=== PATIENT | male | born 1980 | race Caucasian/White ===

== ENCOUNTER 2022-04-04 09:19 | Outpatient (REF) | payer OTHER, BC, SELFPAY ==
[2022-04-04 11:11] LABS: MANUAL DIFF FLAG NO
[2022-04-04 11:32] LABS: Basophils Percent Auto 0.3 % (0-2); Eosinophils Absolute Auto 0.1 X10*3/uL (0.0-0.4); Hematocrit 47.2 % (42.0-52.0); Hemoglobin 15.7 g/dl (14.0-18.0); Imm Gran Abs Auto 0.01 X10*3/uL (0.00-0.03); Imm Gran Pct Auto 0.2 % (0.0-0.4); Lymphocytes Absolute Auto 1.3 X10*3/uL (1.2-4.9); Lymphocytes Percent Auto 19.5 % (20-40); Mean Corpuscular HGB Conc 33.3 g/dl (31.0-36.0); Mean Corpuscular Hemoglobin 28.2 pg (27.0-33.0); Mean Corpuscular Volume 84.9 fL (80.0-98.0); Monocytes Absolute Auto 0.7 X10*3/uL (0.1-1.2); Monocytes Percent Auto 10.4 % (2-11); Neutrophils Absolute Auto 4.5 x10*3/uL (2.0-8.3); Neutrophils Percent Auto 67.6 % (45-73); Platelet Count 237 X10*3/uL (160-400); Red Blood Count 5.56 X10*6/uL (4.60-5.80); Red Cell Distribution Width 11.9 % (11.0-16.0); White Blood Count 6.6 X10*3/uL (4.8-10.8)
[2022-04-04 12:04] LABS: Alanine Aminotransferase 40 U/L (0-40); Albumin Level 4.6 g/dL (3.5-5.0); Alkaline Phosphatase 74 U/L (39-117); Anion Gap 16 (12-20); Aspartate Amino Transferase 23 U/L (5-37); Bilirubin Total 0.5 mg/dL (0.0-1.0); Blood Urea Nitrogen 18 mg/dL (9-16); Calcium 9.5 mg/dL (8.4-10.2); Carbon Dioxide 24 mmol/L (22-29); Chloride 105 mmol/L (96-108); Cholesterol 173 mg/dL; Estimated Glomerular Filt Rate > 60; Glucose Random 101 mg/dL (60-115); HDL Cholesterol 33 mg/dL; LDL Cholesterol Calculated 118 mg/dl; Potassium 4.6 mmol/L (3.3-5.1); Sodium 140 mmol/L (135-145); Total Protein 7.4 g/dL (6.5-8.0); Triglycerides 111 mg/dL
== END 2022-04-04 09:20 | disposition home or self-care (01) ==
LOC: HO.MANLDS 09:19
PROVIDERS: Visit Provider Physician Assistant
DX: I10 Essential (primary) hypertension (principal)
CPT/HCPCS: 36415; 80053; 80061; 85025

== ENCOUNTER 2023-10-13 09:59 | Outpatient (REF) | payer BC, SELFPAY ==
[2023-10-13 13:30] LABS: MANUAL DIFF FLAG NO
[2023-10-13 13:59] LABS: Basophils Percent Auto 0.5 % (0-2); Eosinophils Absolute Auto 0.1 X10*3/uL (0.0-0.4); Eosinophils Percent Auto 2.4 % (0-4); Hematocrit 46.6 % (42.0-52.0); Hemoglobin 15.1 g/dl (14.0-18.0); Imm Gran Abs Auto 0.03 X10*3/uL (0.00-0.03); Imm Gran Pct Auto 0.5 % (0.0-0.4); Lymphocytes Absolute Auto 1.4 X10*3/uL (1.2-4.9); Lymphocytes Percent Auto 24.3 % (20-40); Mean Corpuscular HGB Conc 32.4 g/dl (31.0-36.0); Mean Corpuscular Hemoglobin 28.3 pg (27.0-33.0); Mean Corpuscular Volume 87.4 fL (80.0-98.0); Mean Platelet Volume 12.4 fL (9.4-12.4); Monocytes Absolute Auto 0.6 X10*3/uL (0.1-1.2); Monocytes Percent Auto 9.7 % (2-11); Neutrophils Absolute Auto 3.6 x10*3/uL (2.0-8.3); Neutrophils Percent Auto 62.6 % (45-73); Platelet Count 217 X10*3/uL (160-400); Red Blood Count 5.33 X10*6/uL (4.60-5.80); Red Cell Distribution Width 12.6 % (11.0-16.0); White Blood Count 5.8 X10*3/uL (4.8-10.8)
[2023-10-13 14:26] LABS: Estimated Average Glucose 111 mg/dL; Hemoglobin A1c % 5.5 % (<6.0)
[2023-10-13 14:33] LABS: Prostate Specific Antigen 0.72 ng/mL (<0.05-4.0)
[2023-10-13 17:20] LABS: Alanine Aminotransferase 33 U/L (0-40); Albumin Level 4.4 g/dL (3.5-5.0); Alkaline Phosphatase 58 U/L (39-117); Anion Gap 12 (12-20); Aspartate Amino Transferase 24 U/L (5-37); Bilirubin Total 0.7 mg/dL (0.0-1.0); Blood Urea Nitrogen 16 mg/dL (9-16); Calcium 9.7 mg/dL (8.4-10.2); Carbon Dioxide 27 mmol/L (22-29); Chloride 108 mmol/L (96-108); Cholesterol 215 mg/dL (<200); Estimated Glomerular Filt Rate > 60; Glucose Random 91 mg/dL (60-115); HDL Cholesterol 49 mg/dL (>40); LDL Cholesterol Calculated 147 mg/dL (<100); Potassium 4.5 mmol/L (3.3-5.1); Sodium 142 mmol/L (135-145); Total Protein 7.4 g/dL (6.5-8.0); Triglycerides 95 mg/dL (<150)
[2023-10-13 17:43] LABS: Thyroid Stimulating Hormone 1.06 uIU/mL (0.32-4.0)
== END 2023-10-13 10:00 | disposition home or self-care (01) ==
LOC: HO.MANLDS 09:59
PROVIDERS: Visit Provider Physician Assistant
DX: Z00.00 Encounter for general adult medical examination without abnormal findings (principal); Z12.5 Encounter for screening for malignant neoplasm of prostate; E66.01 Morbid (severe) obesity due to excess calories
CPT/HCPCS: 36415; 80053; 80061; 83036; 84153; 84439; 84443; 85025

== ENCOUNTER 2024-10-03 11:42 | Outpatient (REF) | payer BC, SELFPAY ==
[2024-10-03 13:09] LABS: MANUAL DIFF FLAG NO
[2024-10-03 13:17] LABS: Basophils Percent Auto 0.5 % (0-2); Eosinophils Absolute Auto 0.2 X10*3/uL (0.0-0.4); Eosinophils Percent Auto 2.7 % (0-4); Hematocrit 44.1 % (42.0-52.0); Hemoglobin 14.1 g/dl (14.0-18.0); Imm Gran Abs Auto 0.02 X10*3/uL (0.00-0.03); Imm Gran Pct Auto 0.3 % (0.0-0.4); Lymphocytes Absolute Auto 1.3 X10*3/uL (1.2-4.9); Lymphocytes Percent Auto 22.1 % (20-40); Mean Corpuscular Hemoglobin 28.2 pg (27.0-33.0); Mean Corpuscular Volume 88.2 fL (80.0-98.0); Mean Platelet Volume 12.2 fL (9.4-12.4); Monocytes Absolute Auto 0.7 X10*3/uL (0.1-1.2); Monocytes Percent Auto 11.1 % (2-11); Neutrophils Absolute Auto 3.8 x10*3/uL (2.0-8.3); Neutrophils Percent Auto 63.3 % (45-73); Platelet Count 226 X10*3/uL (160-400); Red Cell Distribution Width 12.5 % (11.0-16.0)
--- OUTSIDE RECORDS SUMMARY | 2024-10-03 14:12 | XMS_ITS | Continuity of Care Document ---
Author Organization [facility] Address [address] [place] [address] [place] [address] Assessment No assessment recorded. Plan of Treatment Reminders Order Date Submit Date Provider Last Modified By Organization Details Last Modified Time Details Appointments SDV 2024 11:00A JAIDEN BROWN Not available Not available Not available ANNUAL EXAM 2025 09:00A JAIDEN BROWN Not available Not available Not available Lab lyme igg + igm Ab, western blot, serum 2024 025 [facility], [address] [place] [address], [id number], 10/03/2024 11:32:30 anaplasma phagocyto philum (hga/hge) igg+igm Ab, serum 2024 025 [facility], [address] [place] [address], [id number], 10/03/2024 11:32:30 ehrlichia chaffeens is, igg+igm Ab, serum 2024 025 [facility], [address] [place] [address], [id number], 10/03/2024 11:32:30 rickettsi al antibody panel, serum 2024 025 [facility], [address] [place] [address], [id number], 10/03/2024 11:34:17 CBC w/ auto diff 2024 025 [facility], [address] [place] [address], [id number], 10/03/2024 11:37:42 renin activity + aldostero ne, plasma 2024 025 [facility], [address] [place] [address], [id number], 10/03/2024 11:32:30 CMP, serum or plasma 2024 025 [facility], [address] [place] [address], [id number], 10/03/2024 11:32:30 Referral None recorded. Procedures None recorded. Surgeries None recorded. Imaging XR, knee, 3 view 2024 025 [facility], [address] [place] [address], [id number], 10/03/2024 13:34:33 XR, knee, 3 view 2024 025 [facility], [address] [place] [address], [id number], 10/03/2024 13:34:33 Medication Orders None recorded. Patient TargetsNo targets recorded. Patient InstructionsNo instructions recorded. Reason for Referral None Reported. Problems Name Problem SNOMED Code Status Onset Date Resolution Date Notes Provider Name and Address Organization Details Recorded Time Morbid obesity 055652832 Active 2019 Not Available [facility] 1 05:59:11 Sleep apnea 59327017 Active 2021 JAIDEN WISDOM [address] [place], [address], [facility] 2 15:49:49 Acute sinusitis 13488272 Active 2022 JAIDEN WISDOM [address] [place], [address], [facility] 3 15:07:19 Resistant hypertens jose agnel disorder 774487768823 109 Active 2024 JAIDEN WISDOM [address] [place], [address], [facility] 5 09:45:24 Hyperaldo steronism 64985847 Active 2024 JAIDEN WISDOM [address] [place], [address], [facility] 5 09:46:43 Malignant hypertens ion 89610142 Active 2024 JAIDEN WISDOM [address] [place], [address], [facility] 5 12:56:40 Lyme disease 74784099 Active 2024 JAIDEN WISDOM [address] [place], [address], [facility] 5 11:29:41 Pain of left knee joint 227538664614 107 Active 2024 JAIDEN WISDOM [address] [place], [address], [facility] 5 11:32:17 Pain of right knee joint 953501282580 100 Active 2024 JAIDEN WISDOM [address] [place], [address], [facility] 5 11:32:25 Essential hypertens ion 85622748 Active 2017 Not Available [facility] 1 05:59:11 Problem Notes None recorded. Medical Equipment None Reported. Allergies Allergen ID Allergen Name Allergen Category Reaction Reaction Severity Criticality Documentation Date Start Date Code Code System Note Provider Name and Address Organization Details Recorded Time 1768 lisinopri l medicatio n cough Not available Not available 01/01/2018 96306 [facility] 8 15:35:32 1789 doxycycli ne Not available hives Not available Not available 01/04/2018 3640 RxNorm Cheyanne pedraza [place] - [facility] 8 16:18:05 Medications Name Sig Start Date Stop Date Status Note LastModified by Organization Details LastModified Time losartan 50 mg tablet TAKE 2 TABLETS BY MOUTH EVERY DAY active Not Available Not Available No t Available cyclobenza jose luis 10 mg tablet 08/25 completed Not Available Not Available Not Available amoxicilli n 500 mg capsule TAKE 1 TABLET BY MOUTH 3 TIMES A DAY X11 DAYS 05/18 completed 2 - did not start Not Available Not Available Not Available labetalol 200 mg tablet TAKE 1 TABLET BY MOUTH TWICE A DAY 04/02 completed Not Available Not Available Not Available azithromyc in 250 mg tablet TAKE 2 TABLETS BY MOUTH TODAY, THEN TAKE 1 TABLET DAILY FOR 4 DAYS 05/18 completed Not Available Not Available Not Available prednisone 20 mg tablet 01/04 completed Not Available Not Available Not Available atenolol 25 mg tablet TAKE 1 TABLET BY MOUTH EVERY DAY 05/28 completed Not Available Not Available Not Available amlodipine 5 mg tablet TAKE 1 TABLET BY MOUTH EVERY DAY active Not Available Not Available No t Available triamcinol one acetonide 0.1 % topical cream APPLY A THIN LAYER TO THE AFFECTED AREA(S) BY TOPICAL ROUTE 2 TIMES PER DAY 10/15 completed Not Available Not Available Not Available spironolac tone 25 mg tablet TAKE 1 TABLET BY MOUTH EVERY DAY 05/28 completed Not Available Not Available Not Available amoxicilli n 500 mg tablet Take 1 tablet every 8 hours by oral route for 10 days. 07/05 completed Not Available Not Available Not Available losartan 100 mg-hydroch lorothiazi de 25 mg tablet TAKE 1 TABLET BY MOUTH ONCE A DAY active Not Available Not Available No t Available amoxicilli n 875 mg tablet TAKE 1 TABLET BY MOUTH EVERY 12 HOURS FOR 15 DAYS 07/01 completed Not Available Not Available Not Available hydrocorti sone-aceti c acid 1 %-2 % ear drops USE 3 DROPS INTO RIGHT EAR 4 TIMES A DAY FOR 7 DAYS 05/28 completed Not Available Not Available Not Available amlodipine 10 mg tablet TAKE 1 TABLET BY MOUTH EVERY DAY 03/21 completed Not Available Not Available Not Available benzonatat e 100 mg capsule 10/15 completed Not Available Not Available Not Available metoprolol tartrate 50 mg tablet TAKE 1 TABLET BY MOUTH TWICE A DAY 05/18 completed Not Available Not Available Not Available codeine 10 mg-guaifen esin 100 mg/5 mL oral liquid 01/04 completed Not Available Not Available Not Available hydrochlor othiazide 25 mg tablet TAKE 1 TABLET BY MOUTH EVERY DAY active Not Available Not Available No t Available irbesartan 150 mg tablet Take 1 tablet every day by oral route for 30 days. 10/07 completed Not Available Not Available Not Available labetalol 100 mg tablet TAKE 1 TABLET BY MOUTH EVERY DAY 09/19 completed Not Available Not Available Not Available albuterol sulfate HFA 90 mcg/actuat ion aerosol inhaler 07/05 completed Not Available Not Available Not Available losartan 100 mg tablet TAKE 1 TABLET BY MOUTH EVERY DAY active Not Available Not Available No t Available fluticason e propionate 50 mcg/actuat ion nasal spray,susp ension 07/05 completed Not Available Not Available Not Available atenolol 50 mg tablet TAKE 1 TABLET BY MOUTH EVERY DAY 05/28 completed Not Available Not Available Not Available loratadine 10 mg tablet Take 1 tablet every day by oral route for 30 days. 03/21 completed Not Available Not Available Not Available amoxicilli n 875 mg-potassi um clavulanat e 125 mg tablet TAKE 1 TABLET BY MOUTH EVERY 12 HOURS,X7 DAYS WITH FOOD OR MILK 05/18 completed 2 - has one day left Not Available Not Available Not Available diltiazem ER 360 mg tablet,ext ended release 24 hr TAKE 1 TABLET BY MOUTH EVERY DAY active Not Available Not Available No t Available cyclobenza jose luis 5 mg tablet TAKE 1 TABLET BY MOUTH 3 TIMES A DAY NEEDED. 07/01 completed Not Available Not Available Not Available DILT-XR 120 mg capsule, extended release TAKE 1 CAPSULE BY MOUTH EVERY DAY 05/18 completed Not Available Not Available Not Available DILT-XR 240 mg capsule, extended release TAKE 1 CAPSULE BY MOUTH EVERY DAY 05/18 completed Not Available Not Available Not Available Tiadylt ER 360 mg capsule,ex tended release TAKE 1 CAPSULE BY MOUTH EVERY DAY active Not Available Not Available No t Available ID NOW COVID-19 Test Kit TEST DIRECTED 10/07 completed Not Available Not Available Not Available Vitals Date Recorded Body height Body mass index (BMI) Body weight Heart rate Oxygen saturation Oxygen saturation in Arterial blood by Pulse oximetry Systolic blood pressure Diastolic blood pressure Provider Name and Address Organization Details Last Updated DateTime 5 185.42 cm 49.4 kg/m2 443246. 62 g 86 /min 98 % 98 % 162 mm[Hg] 94 mm[Hg] Kenyetta Alon [facility] 5 11:16:29 Social History Question Answer Notes LastModified by Organizat ion Details LastModified Time Tobacco Smoking Status Former Smoker Cheyanne Elio pedraza [facility] 01/04/2018 16:19:50 What Was The Date Of Your Most Recent Tobacco Screening? 10/03/2024 [email or web address] Information not available 10/03/2024 How Many Years Have You Smoked Tobacco? 3 [email or web address] Information not available 01/04/2018 Sex: Unknown Functional Status None recorded. Mental Status None recorded. Family History Nothing Reported. Medical History No medical history recorded. Immunizations Vaccine Type Date Status Note Provider Nam e and Address Organization Details Recorded Time COVID-19, mRNA, LNP-S, PF, 100 mcg/0.5mL dose or 50 mcg/0.25mL dose 03/20/2021 completed Dara pedraza [facility] 03/25/2021 08:23:12 Past Encounters Encounter ID Performer Location Encounter Start Date Encounter Closed Date Diagnosis/Indication Diagnosis SNOMED-CT Code Diagnosis ICD10 Code Diagnosis Note [id number] JAIDEN WISDOM [facility] [address] [address] 10/03/2024 10:50:51 10/03/2024 13:34:33 Lyme disease 85942089 A69.20 will set up with screening BW Resistant hypertensive disorder 1779871703 65245 I1A.0 will set up with new orders Pain of le ft knee joint 4736169807 38799 M25.562 will set up with XRs Pain of ri ght knee joint 8152437975 02662 M25.561 will set up with XRs Health Concerns Section Related Observation LastModified by Organization Detai ls LastModified Time None Recorded Concern Status LastModified by Organization Details LastModified Time None Recorded Payers Encounter Date Sequence Insurance Name Policy Number Policy Rodriguez Covered Member ID Rodriguez Member ID Guarantor Name 10/03/2024 1 URIEL-SUSAN: URIEL (O) [id number] Franco Tarango [id number] Franco Tarango III Notes Date Note Type Note Provider Name a nd Address Organization Details Recorded Time 10/03/2024 text/html c/o tic bite, HTN, L/Ns the patient was bite by a tick in his left earwas also recently in [place] hunting trip, which he could have been exposed down there to any number of insects vs tick borne illness per patient the entire tick was removed having elissa knee pain and LN swelling since the tick bitealso note sciatica previously that resolved after he changed his wallet, since he was sitting on it, R side, causing unevenness in pressure between the left and right side recommended lab workhad to reorder original bw from previous appt, pt lost the paperwork due to work also added on tick borne illness panels sent in XR knee elissa to see if alt cause for pain including arthritis JAIDEN WISDOM [address], [place], [address], [place] [facility] 10/03/2024 12:54:36
--- OUTSIDE RECORDS SUMMARY | 2024-10-03 14:12 | XMS_ITS | Data Portability ---
Author Organization [facility] Home Service Address [address] [place] [address] Assessment No assessment recorded. Plan of Treatment Reminders Order Date Submit Date Provider Last Modified By Organization Details Last Modified Time Details Appointments SDV 2024 11:00A JAIDEN BROWN Not available Not available Not available ANNUAL EXAM 2025 09:00A JAIDEN BROWN Not available Not available Not available Lab lyme igg + igm Ab, western blot, serum 2024 025 [facility], [address] [place] [address], [address], 10/03/2024 11:32:30 anaplasma phagocyto philum (hga/hge) igg+igm Ab, serum 2024 025 [facility], [address] [place] [address], [address], 10/03/2024 11:32:30 ehrlichia chaffeens is, igg+igm Ab, serum 2024 025 [facility], [address] [place] [address], [place], [address], 10/03/2024 11:32:30 rickettsi al antibody panel, serum 2024 025 [facility], [address] [place] [address], [address], 10/03/2024 11:34:17 CBC w/ auto diff 2024 025 [facility], [address] [place] [address], [address], 10/03/2024 11:37:42 renin activity + aldostero ne, plasma 2024 025 [facility], [address] [place] [address], [address], 10/03/2024 11:32:30 CMP, serum or plasma 2024 025 [facility], [address] [place] [address], [address], 10/03/2024 11:32:30 renin activity + aldostero ne, plasma 2024 025 [facility], [place], [address], 07/01/2024 09:49:54 CMP, serum or plasma 2024 025 [email or web address], [place], [address], 07/01/2024 09:49:54 TSH + free T4, serum 2022 023 [facility], [address] [place] [address], [address], 05/18/2023 10:38:40 CMP, serum or plasma 2022 023 [facility], [address] [place] [address], [address], 05/18/2023 10:38:40 CBC w/ auto diff 2022 023 [facility], [address] [place] [address], [address], 05/18/2023 10:38:40 lipid panel, blood 2022 023 [facility], [address] [place] [address], [place], [address], 05/25/2023 08:31:19 hemoglobi n A1c, QN, blood 2022 023 [facility], [address] [place] [address], [place], [address], 05/18/2023 10:38:40 PSA, total + free, serum or plasma 2022 023 [facility], [address] [place] [address], [place], [address], 05/18/2023 10:38:40 CMP, serum or plasma 2021 022 [facility], [address] [place] [address], [place], [address], 04/07/2022 12:03:27 CBC w/ auto diff 2021 022 [facility], [address] [place] [address], [address], 04/07/2022 12:03:27 lipid panel, serum 2021 022 [facility], [address] [place] [address], [address], 04/07/2022 12:03:27 Referral sleep medicine referral 2021 022 [email or web address] 10 [facility], [address] [address], [place], [address], 04/04/2022 09:32:06 Procedures None recorded. Surgeries None recorded. Imaging XR, knee, 3 view 2024 025 [facility], [address] [place], [address], 10/03/2024 11:35:05 XR, knee, 3 view 2024 025 [email or web address], [address] [place], [address], 10/03/2024 11:35:05 US, duplex, renal artery 2024 025 [facility], [address] [place], [address], 07/05/2024 13:29:10 Medication Orders amoxicill in 875 mg tablet 2022 023 [email or web address] [id number], [address] [place], [address], 07/01/2024 09:16:47 labetalol 200 mg tablet 2021 022 [id number], [address] [place], [address], 04/02/2022 15:42:01 Patient TargetsNo targets recorded. Patient InstructionsNo instructions recorded. Reason for Referral Sleep Medicine Referral for Sleep apnea needs in facility sleep test after episode of V tach at ER Referring Physician: Kathya Figueroa, Internal Medicine, Encounter Date: 04/02/2022 Results Created Date Observation Date Name Description Value Unit Range Abnormal Flag Note LastModifiedBy Organization Detail LastModifiedTime 05/25/20 22 05/20/2022 home sleep study No observ ation [facility]. [email or web address] [address] [place], [address], 05/26/2022 08:57:12 Result Notes None recorded. Problems Name Problem SNOMED Code Status Onset Date Resolution Date Notes Provider Name and Address Organization Details Recorded Time Morbid obesity 128160036 Active 2019 Not Available [facility] 05:59:11 Sleep apnea 83002960 Active 2021 JAIDEN WISDOM [address] [place], [address], [facility] 10/05/202 2 15:49:49 Acute sinusitis 47875736 Active 2022 JAIDEN WISDOM [address] [place], [address], [facility] 3 15:07:19 Resistant hypertens jose angel disorder 469056176008 109 Active 2024 JAIDEN WISDOM [address] [place], [address], [facility] 5 09:45:24 Hyperaldo steronism 79176055 Active 2024 JAIDEN WISDOM [address] [place], [address], [facility] 5 09:46:43 Malignant hypertens ion 32380609 Active 2024 JAIDEN WISDOM [address] [place], [address], [facility] 5 12:56:40 Lyme disease 38696625 Active 2024 JAIDEN WISDOM [address] [place], [address], [facility] 5 11:29:41 Pain of left knee joint 555248148922 107 Active 2024 JAIDEN WISDOM [address] [place], [address], [facility] 5 11:32:17 Pain of right knee joint 527230851015 100 Active 2024 JAIDEN WISDOM [address] [place], [address], [facility] 5 11:32:25 Essential hypertens ion 44682829 Active 2017 Not Available [facility] 1 05:59:11 Problem Notes None recorded. Procedures Surgical History None recorded. Imaging Results Imaging Date Name Status LastModified by [facility] Details LastModified Time 05/20/2022 home sleep study completed [facility] [address] [place] [address], [address], 05/26/2022 08:57:12 Procedure Notes None recorded. Medical Equipment None Reported. Allergies Allergen ID Allergen Name Allergen Category Reaction Reaction Severity Criticality Documentation Date Start Date Code Code System Note Provider Name and Address Organization Details Recorded Time 1768 lisinopri l medicatio n cough Not available Not available 01/01/2018 03874 RxNorm Cheyanne pedraza [facility] 8 15:35:32 1789 doxycycli ne Not available hives Not available Not available 01/04/2018 3640 RxNorm Cheyanne pedraza [facility] 8 16:18:05 Medications Name Sig [...] Not Available Vitals Date Recorded Body height Oxygen saturation Oxygen saturation in Arterial blood by Pulse oximetry Heart rate Systolic blood pressure Diastolic blood pressure Provider Name and Address Organization Details Last Updated DateTime 2 185.42 cm 97 % 97 % 65 /min 170 mm[Hg] 82 mm[Hg] Amy Mendoza [facility] 2 11:39:38 Date Recorded Body height Body mass index (BMI) Body weight Oxygen saturation Oxygen saturation in Arterial blood by Pulse oximetry Heart rate Systolic blood pressure Diastolic blood pressure Provider Name and Address Organization Details Last Updated DateTime 2 185.42 cm 45.6 kg/m2 165805. 8 g 97 % 97 % 59 /min 158 mm[Hg] 84 mm[Hg] Amy Mendoza [facility] 2 15:43:14 Date Recorded Body height Body mass index (BMI) Body weight Oxygen saturation Oxygen saturation in Arterial blood by Pulse oximetry Heart rate Systolic blood pressure Diastolic blood pressure Provider Name and Address Organization Details Last Updated DateTime 3 185.42 cm 48.2 kg/m2 985779. 73 g 97 % 97 % 76 /min 142 mm[Hg] 84 mm[Hg] JAIDEN WISDOM [address] [place], [address] [place] [address] Internal Medicine 3 10:28:43 Date Recorded Body height Body mass index (BMI) Body weight Heart rate Oxygen saturation Oxygen saturation in Arterial blood by Pulse oximetry Systolic blood pressure Diastolic blood pressure Provider Name and Address Organization Details Last Updated DateTime 5 185.42 cm 48.9 kg/m2 047301. 05 g 75 /min 98 % 98 % 184 mm[Hg] 98 mm[Hg] Kenyetta Chi [facility] Internal [facility] 5 09:22:43 Date Recorded Body height Body mass index (BMI) Body weight Heart rate Oxygen saturation Oxygen saturation in Arterial blood by Pulse oximetry Systolic blood pressure Diastolic blood pressure Provider Name and Address Organization Details Last Updated DateTime 5 185.42 cm 49.4 kg/m2 747654. 62 g 86 /min 98 % 98 % 162 mm[Hg] 94 mm[Hg] Kenyetta Chi [facility] Internal Medicine 5 11:16:29 Social History Question Answer Notes LastModified by Organizat ion Details LastModified Time Tobacco Smoking Status Former Smoker Cheyanne Elio pedraza [facility] 01/04/2018 16:19:50 What Was The Date [...] 50 mcg/0.25mL dose 03/20/2021 completed Dara pedraza [facility] 03/25/2021 08:23:12 Past Encounters Encounter ID Performer Location Encounter Start Date Encounter Closed Date Diagnosis/Indication Diagnosis SNOMED-CT Code Diagnosis ICD10 Code Diagnosis Note [id number] September EVANS Quintanilla [facility] [address] [facility],[place] [address] 01/04/2018 16:09:43 01/04/2018 16:58:26 Hypertensive disorder 93599500 I10 reinforced importace of diet, exercise, weight loss Body mass index 30+ - obesity 927757667 Z68.39 [id number] Cecelia Mtz NP, S [facility] Internal Medicine [address] [facility],[place] [address] 08/25/2018 14:54:22 08/25/2018 15:40:22 Essential hypertension 28783793 I10 Avoid decongesta nts and energy drinks. Pruritic rash 21796994 L 28.2 Body mass index 40+ - severely obese 143746774 Z68.43 Viral syndrome 638138926 B34.9 [id number] Eugene Mcrae [facility] [address] [place] [address] 10/15/2018 16:25:10 10/18/2018 08:17:46 Essential hypertension 92104214 I10 doing well overall no change in med Submandibu lar sialolithiasis 109370160 K11.5 noted to have right side swelling and tenderness [id number] Eugene Mcrae [facility] [address] [place] [address] 06/01/2019 16:13:43 06/01/2019 16:33:43 Essential hypertension 66316958 I10 bp not controlled on current losartan med will dC and change to amlodipine 5 mg once daily [id number] uEgene Mcrae [facility] [address] [facility],[place] [address] 07/05/2019 15:38:02 07/05/2019 15:58:12 Essential hypertension 85596760 I10 now on amlodipine 10 mg but is still having elevated bp will add potass sparing [id number] Eugene Mcrae [facility] Medicine [address] [place] [address] 08/05/2019 15:49:02 08/05/2019 16:26:00 Essential hypertension 77256554 I10 now on amlodipine 10 mg and spironolac tone 25mg [id number] Eugene Mcrae [facility] Medicine [address] [place] [address] 02/13/2020 16:13:33 02/13/2020 17:02:35 Essential hypertension 91712000 I10 \will try the irbesartan as he did not tolerate the amlodipine or spirono [id number] JAIDEN WISDOM Internal [facility] [address] [facility] [address] [address] 03/21/2020 14:41:25 03/21/2020 15:08:25 Essential hypertension 58019871 I10 BP is still elevated today at 160/98 the patient's BP was 160/100 last time 3 weeks ago side effects good after stopping other two medication s though will trial him on atenolol and see if improvemen t and can tolerate will discuss with MICHAEL Morbid obesity 862032142 E66.01 patient has not made any attempts to lose any weight weight is still stable at 401 over the last two visits [id number] JAIDEN WISDOM [facility] [address] [facility] [address] [address] 04/20/2020 15:22:25 04/20/2020 15:57:12 Essential hypertension 06689059 I10 BP is still elevated today at 170/96 the patient's BP was elevated last appt as well no side effects will increase the atenolol will have patient take atenolol in the morning and irbesartan at night Morbid obesity 858080531 E66.01 patient is actually down to 392 at this appt [id number] JAIDEN WISDOM [facility] [address] [facility] [address] [address] 05/28/2020 16:01:45 05/28/2020 16:40:22 Essential hypertension 06003755 I10 BP elevated today, but not outlier from last few readings in office stopped atenolol, [place] [id number] JA[facility]EN WISDOM [facility] [address] [facility] [address] [address] 06/27/2020 10:07:04 06/27/2020 10:50:54 Essential hypertension 07713123 I10 BP on 200 mg of labetalol per patient is much better so will increase to 200 mg tolerable, no side effects Morbid obesity 396075914 E66.01 patient weight is no change [id number] JAIDEN WISDOM [facility] [address] [facility] [address] [address] 08/06/2020 09:50:57 08/06/2020 13:28:20 Suspected COVID-19 120283975 Z03.89 will get patient retested as he is still presenting with COVID symptoms Cough 62570674 R05 mild, intermitte nt cough can use OTC cough suppressan t PRN Anterior rhinorrhea 4772 48455 J34.89 can use OTC decongesta nts and OTC cold and flu [id number] JAIDEN WISDOM [facility] Internal Medicine [address] [facility] [address] [address] 10/07/2021 11:33:30 10/08/2021 14:28:00 Essential hypertension 07851616 I10 will boost up labetalol and fu with numbers [id number] JAIDEN WISDOM [facility] Internal Medicine [address] [facility] [address] [address] 04/02/2022 15:15:44 04/02/2022 16:33:52 Sleep apnea 32605665 G47.33 will set up with sleep medicine Essential hypertension 18029837 I10 will continue on metoprolol and finish augmentin [id number] JAIDEN WISDOM [facility] Internal Medicine [address] [facility] [address] [address] 05/18/2023 10:18:41 05/18/2023 10:49:18 Tick bite 25459975 W57.XXXA will set up with amoxicilli n for the next 15 days Morbid obesity 937881934 E66.01 patient weight is no change Essential hypertension 70043928 I10 stable Adult [facility] th examination 040714794 Z00. will set up with yearly blood workwill schedule a physical in 6 mos or a regular 6 mos fu [id number] JAIDEN WISDOM [facility] Internal Medicine [address] [facility] [address] [address] 07/01/2024 09:09:16 07/01/2024 09:57:37 Depression screening 134916825 Z13.31 SCREENING NEGATIVE Active or passive immunization 917020658 Z23 advised Adult heal th examination 215206941 Z00. will set up with yearly blood workwill schedule a physical in 6 mos or a regular 6 mos fu Resistant hypertensive disorder 3107979932 63710 I1A.0 will set up with screening fro aldosteron e and renin due to resistant BP will also schedule US renal BP recheck 145/83 R arm sitting after 15 minutes [id number] JAIDEN WISDOM [facility] Internal Medicine [address] [facility] [address],[place] [address] 10/03/2024 10:50:51 10/03/2024 12:54:37 Lyme disease 13716879 A69.20 will set up with screening BW Resistant hypertensive disorder 5902090033 27136 I1A.0 will set up with new orders Pain of le ft knee joint 3590126998 75846 M25.562 will set up with XRs Pain of ri ght knee joint 6815062747 39596 M25.561 will set up with XRs Health Concerns Section Related Observation LastModified by Organization Detai ls LastModified Time None Recorded Concern Status LastModified by Organization Details LastModified Time None Recorded Advance Directives Directive None Recorded Payers Encounter Date Sequence Insurance Name Policy Number Policy Rodriguez Covered Member ID Rodriguez Member ID Guarantor Name 10/07/2021 1 [place] [id number] Franco A Andras [id number] Franco Andras III 04/02/2022 1 [place] [id number] Franco A Andras [id number] Franco Andras III 05/18/2023 1 [place] [id number] Franco A Andras [id number] Franco Andras III 07/01/2024 1 [place] [id number] Franco A Andras [id number] Franco Andras III 10/03/2024 1 [place] [id number] Franco A Andras [id number] Franco Andras III Notes Date Note Type Note Provider Name a nd Address Organization Details Recorded Time 2 text/html c/o HTN the patient is here for recheck of his BPit is elevated today in officereports at recent DOT exam it was up to 158/90 will bump up labetalol to 400 mg and fu with what his numbers look like with recheck through DOT JAIDEN WISDOM [address] [place], [address], [facility] 10/07/2021 11:54:30 2 text/html ER f/u had chest pain, hypertensive urgency, and ventricular tachycardiathe patient reports that he was seen by cardiohas monitorstarted on abx for further testingwill be seeing cardiology the patient will f/u sleep study, inpatient as last test was inconclusive will fu with the patient as needed JAIDEN WISDOM [address] [place], [address], [facility] 04/02/2022 15:59:31 3 text/html tick bite got bit by a tick, has been hunting these past few weekscreating a ring around the biteinfection, possible lymeallergic to doxystart on amoxicillin for the next 15 days started keto dietwould like lab work in a few months and a 6 mos fu agreedgiven lab work and DB scheduled his funo other questions today JAIDEN WISDOM [address] [place], [address], [facility] 05/18/2023 10:41:24 5 text/html Annual WellnessReported bypatient.Diet and Nutrition:healthy diet; discussed vitamin and supplement use; discussed portion control; discussed maintaining calcium balance; discussed diet improvement Fracture Risk:no history of fractures; no recent explained fracture; no sudden unexplained fractures; no previous musculoskeletal injuries Physical Activity:exercises on a regular basis; recent increase in physical activity; good physical condition Additional Lifestyle Factors:stopped drinking alcohol; drinks alcohol (mild-moderate) Depression Risk:never feels sad, empty, or tearful; no loss of interest in activities; no significant changes in weight; no sleep disturbances or insomnia; no agitation; no loss of energy; no feelings of worthlessness or guilt; no thoughts of suicide; no history of depression; no history of mood disorders Hearing:no loss of hearing Vision:no vision problemsNotes:sees dentist regularly the patient reports that he has been seeing cardiohad REMACZ added on to his med listsome heartburn, recommended taking with food no other medication changes will set up with screening for his renin and aldosterone with US renal JAIDEN WISDOM [address] [place], [address], [facility] 07/01/2024 09:55:48 5 text/html c/o tic bite, HTN, L/Ns the [...] for pain including arthritis JAIDEN WISDOM [address] [place], [address], [facility] 10/03/2024 12:54:36
[2024-10-03 14:39] LABS: Alanine Aminotransferase 36 U/L (0-40); Albumin Level 4.2 g/dL (3.5-5.0); Alkaline Phosphatase 60 U/L (39-117); Anion Gap 12 (12-20); Aspartate Amino Transferase 26 U/L (5-37); Bilirubin Total 0.4 mg/dL (0.0-1.0); Blood Urea Nitrogen 18 mg/dL (9-16); Calcium 9.1 mg/dL (8.4-10.2); Carbon Dioxide 25 mmol/L (22-29); Chloride 108 mmol/L (96-108); Estimated Glomerular Filt Rate > 60; Glucose Random 89 mg/dL (60-115); Potassium 4.1 mmol/L (3.3-5.1); Sodium 141 mmol/L (135-145); Total Protein 7.1 g/dL (6.5-8.0)
[2024-10-04 10:57] LABS: Lyme Abs Screen <0.90 index
[2024-10-07 13:54] LABS: Renin 2.62 ng/mL/h (0.25-5.82)
[2024-10-10 03:44] LABS: A. Phagocytophilum Ab IgG <1:64 (<1:64); A. Phagocytophilum Ab IgM <1:20 (<1:20); E. Chaffeensis Ab IgG <1:64 (<1:64); E. Chaffeensis Ab IgM <1:20 (<1:20)
== END 2024-10-03 11:43 | disposition home or self-care (01) ==
LOC: HO.MANLDS 11:42
PROVIDERS: Visit Provider Physician Assistant
DX: A69.20 Lyme disease, unspecified (principal); I1A.0 Resistant hypertension
CPT/HCPCS: 36415; 80053; 84244; 85025; 86617; 86618; 86666